=== PATIENT | female | born 1985 | race African-American/Black ===

== ENCOUNTER 2022-09-18 12:27 | Emergency (ER) | payer OTHER, SELFPAY ==
--- NOTE | ~2022-09-18 | US_ITS ---
EXAMINATION: US VENOUS ULTRASOUND WITH DOPPLER LOWER EXTREMITY, BILATERAL CLINICAL INFORMATION: Pain swelling COMPARISON: None available. TECHNIQUE: Ultrasound of the deep veins is performed from the hip to the calf with compression sonography and color and pulse Doppler assessment. Spectral analysis with color-flow imaging is performed. FINDINGS: RIGHT: There is normal venous compression and respiratory variation and augmented flow. The visualized common femoral vein, superficial femoral vein, profunda femoral vein, popliteal vein, and the trifurcation region shows no evidence of deep venous thrombosis. There is no significant popliteal fossa cyst. LEFT: There is normal venous compression and respiratory variation and augmented flow. The visualized common femoral vein, superficial femoral vein, profunda femoral vein, popliteal vein, and the trifurcation region shows no evidence of deep venous thrombosis. There is no significant popliteal fossa cyst. If the patient's symptoms persist, followup ultrasound in 5 days 7 days might be of value to exclude proximal propagation from a non-visualized calf vein. US/US venous duplex LE BI IMPRESSION: Limited from patient body habitus. The peroneal calf veins are not visualized bilaterally. There is however No DVT demonstrated in the bilateral lower extremity.
[2022-09-18 13:26] VITALS: BP 184/109; PULSE 78; RESP 20; TEMP 36.2; O2SAT 97; BMI 64.6
[2022-09-18 14:01] LABS: MANUAL DIFF FLAG NO
[2022-09-18 14:03] LABS: Basophils Percent Auto 0.4 % (0-2); Eosinophils Absolute Auto 0.2 X10*3/uL (0.0-0.4); Eosinophils Percent Auto 1.6 % (0-4); Hematocrit 38.2 % (37.0-47.0); Imm Gran Abs Auto 0.04 X10*3/uL (0.00-0.03); Imm Gran Pct Auto 0.4 % (0.0-0.4); Lymphocytes Absolute Auto 2.5 X10*3/uL (1.2-4.9); Lymphocytes Percent Auto 26.2 % (20-40); Mean Corpuscular HGB Conc 31.4 g/dl (31.0-35.0); Mean Corpuscular Hemoglobin 25.5 pg (27.0-33.0); Mean Corpuscular Volume 81.1 fL (80.0-98.0); Mean Platelet Volume 9.7 fL (9.4-12.3); Monocytes Absolute Auto 0.5 X10*3/uL (0.1-1.2); Monocytes Percent Auto 5.6 % (2-11); Neutrophils Absolute Auto 6.2 x10*3/uL (2.0-8.3); Neutrophils Percent Auto 65.8 % (45-73); Platelet Count 203 X10*3/uL (160-400); Red Blood Count 4.71 X10*6/uL (4.20-5.50); Red Cell Distribution Width 14.2 % (11.0-16.0); White Blood Count 9.4 X10*3/uL (4.8-10.8)
[2022-09-18 14:20] LABS: Alanine Aminotransferase 22 U/L (0-31); Albumin Level 4.2 g/dL (3.5-5.0); Alkaline Phosphatase 66 U/L (39-117); Anion Gap 14 (12-20); Aspartate Amino Transferase 26 U/L (5-31); Bilirubin Direct 0.1 mg/dL (0.0-0.5); Bilirubin Total 0.4 mg/dL (0.0-1.0); Blood Urea Nitrogen 12 mg/dL (9-16); Calcium 10.2 mg/dL (8.4-10.2); Carbon Dioxide 26 mmol/L (22-29); Chloride 103 mmol/L (96-108); Creatinine Clr Calc Pharmacy 182.5; Estimated Glomerular Filt Rate > 60; Glucose Random 148 mg/dL (60-115); Lipase 19 U/L (8-78); Potassium 4.2 mmol/L (3.3-5.1); Sodium 139 mmol/L (135-145); Total Protein 7.6 g/dL (6.5-8.0)
[2022-09-18 14:28] LABS: B Type Natriuretic Peptide < 10 pg/mL (<100)
[2022-09-18 14:45] VITALS: BP 149/82; PULSE 71; RESP 18; TEMP 36.6; O2SAT 98
[2022-09-18 16:41] VITALS: BP 160/94; PULSE 76; RESP 18; TEMP 36.8; O2SAT 98
--- NOTE | 2022-09-18 16:44 | ED.GENADULT ---
HPI - General Adult General Chief complaint: Extremity Problem Stated complaint: B/L Foot Swelling W/? Rash Time Seen by Provider: 09/18/22 16:05 Source: patient, RN notes reviewed and old records reviewed Mode of arrival: ambulatory Limitations: no limitations History of Present Illness HPI narrative: 37-year-old female with past medical history significant for obesity, depression presents for evaluation of bilateral leg swelling. Patient reports for the last week she has noticed increased swelling in both of her legs. Her leg seems swell more after sitting for long periods with her legs tangled in a dependent position She reports a 70 lb weight gain in the last 12 months or so She reports recently relocating to this area from [facility] and is currently living in a skilled nursing She reports that she is not on any medications currently She stopped taking her antidepressants about 6 months ago Denies any recent travel. The patient has a 2-1/2-year-old daughter who she has been caring for at home Denies any redness, swelling, fevers, chills Denies any history of DVTs or PEs Related Data Allergies Allergy/AdvReac Type Severity Reaction Status Date / Time cefuroxime Allergy Anaphylaxis Verified 09/18/22 13:37 Review of Systems Constitutional: Constitutional: Denies fatigue, Denies headache(s), Denies weakness and Reports weight gain ENT: Denies headache(s) Cardiovascular: Cardiovascular: Denies chest pain, Reports pedal edema, Reports leg edema and Denies dyspnea Respiratory: Respiratory: Denies cough and Denies dyspnea Gastrointestinal: Gastrointestinal: Denies abdominal pain, Denies constipation and Denies vomiting Genitourinary: Genitourinary: Denies dysuria Neurologic: Denies headache(s) and Denies weakness Endocrine: Endocrine: Denies fatigue PMFSH Social History Social History Advance Directives: No Advance Directives Information Provided: No Physical Exam ED Vital Signs: Vital Signs - 24 hr 09/18/22 13:26 09/18/22 14:45 09/18/22 16:41 Temperature 97.1 F 98 F 98.3 F Pulse Rate 78 71 76 Respiratory Rate 20 18 18 Blood Pressure 184/109 H 149/82 H 160/94 H Pulse Oximetry 97 98 98 Oxygen Delivery Method Room Air Room Air Room Air BMI result Body Mass Index 64.6 Const General: healthy appearing, comfortable, no acute distress, alert and awake Nutritional Appearance: well nourished Orientation/consciousness: patient oriented x3 [facility] Head: Yes normocephalic and Yes atraumatic Eyes Eyelids: Yes eyelids normal Conjunctivae: conjunctivae normal Sclerae: sclerae normal Corneas: corneas normal Pupils: Equal, round and reactive pupils present EOM: EOMs intact bilaterally Neck Neck: Yes full ROM Resp Effort & Inspection: normal respiratory effort, able to speak in complete sentences and not labored Cardio Other: No significant pitting edema to the lower extremities bilaterally. Rate: regular rate Rhythm: regular rhythm Skin Other: No erythema, rashes, lesions to lower extremities bilaterally General skin exam: no rashes or lesions noted and elasticity normal Neuro General: patient oriented x3 Cranial nerves: Yes Equal, round and reactive pupils present and Yes Bilaterally intact EOM present Cognition (Neuro): normal cognition Extrem Other: Moving all extremities well without any obvious deformities Medications Administered Discontinued Medications Generic Name Dose Route Start Last Admin Trade Name Freq PRN Reason Stop Dose Admin Acetaminophen 975 mg 09/18/22 17:40 09/18/22 17:47 Acetaminophen 325 Mg Tablet PO 09/18/22 17:41 975 mg ONCE ONE Administration Medical Decision Making Medical Decision Making [facility] Narrative: 37-year-old female presents for evaluation of leg swelling. Denies any chest pain or shortness of breath. She has no evidence of heart failure, BNP is less than 10. The patient's leg swelling is most likely related to dependent edema. She reports that her swelling has improved since sitting her legs up/elevated in the emergency department. Will get ultrasounds to rule out DVT as the patient admits to a sedentary lifestyle. The patient was educated on elevating her legs, decreasing fluid and sodium intake. Differential Diagnosis Leg edema Dependent edema DVT CHF Cellulitis Lab Data [facility] Lab Attestation statement: I reviewed the patient's lab results. No significant lab abnormalities, negative BNP, no leukocytosis, normal renal function 09/18/22 13:58 09/18/22 13:58 Labs: Lab Results 09/18/22 09/18/22 09/18/22 Range/Units 13:58 13:58 13:58 WBC 9.4 (4.8-10.8) X10*3/uL RBC 4.71 (4.20-5.50) X10*6/uL Hgb 12.0 (12.0-16.0) g/dl Hct 38.2 (37.0-47.0) % MCV 81.1 (80.0-98.0) fL MCH 25.5 L (27.0-33.0) pg MCHC 31.4 (31.0-35.0) g/dl RDW 14.2 (11.0-16.0) % Plt Count 203 (160-400) X10*3/uL MPV 9.7 (9.4-12.3) fL Immature Gran % (Auto) 0.4 (0.0-0.4) % Neut % (Auto) 65.8 (45-73) % Lymph % (Auto) 26.2 (20-40) % [place] % (Auto) 5.6 (2-11) % Eos % (Auto) 1.6 (0-4) % Baso % (Auto) 0.4 (0-2) % Lymph # (Auto) 2.5 (1.2-4.9) X10*3/uL [place] # (Auto) 0.5 (0.1-1.2) X10*3/uL Eos # (Auto) 0.2 (0.0-0.4) X10*3/uL Baso # (Auto) 0.0 (0.0-0.2) X10*3/uL Abs Immat Gran (auto) 0.04 H (0.00-0.03) X10*3/uL Absolute Neuts (auto) 6.2 (2.0-8.3) x10*3/uL Absolute Nucleated RBC 0.000 (0.0-0.012) X10*3/uL Nucleated RBC % (auto) 0.0 (0.0-0.2) /100WBC Sodium 139 (135-145) mmol/L Potassium 4.2 (3.3-5.1) mmol/L Chloride 103 (96-108) mmol/L Carbon Dioxide 26 (22-29) mmol/L Anion Gap 14 (12-20) BUN 12 (9-16) mg/dL Creatinine 0.73 (0.5-1.4) mg/dL Estim Creat Clear Calc 182.5 Estimated GFR > 60 Random Glucose 148 H (60-115) mg/dL Calcium 10.2 (8.4-10.2) mg/dL Total Bilirubin 0.4 (0.0-1.0) mg/dL Direct Bilirubin 0.1 (0.0-0.5) mg/dL AST 26 (5-31) U/L ALT 22 (0-31) U/L Alkaline Phosphatase 66 (39-117) U/L B-Natriuretic Peptide < 10 (<100) pg/mL Total Protein 7.6 (6.5-8.0) g/dL Albumin 4.2 (3.5-5.0) g/dL Lipase 19 (8-78) U/L Radiology Impression Discussion of test interpretation with radiology: I have reviewed the radiologist's reading. (No visualized DVT) Discharge Plan Discharge Clinical Impression: Leg edema Patient Disposition: Home, Self-Care Instructions: Leg Edema (ED) Additional Instructions: Your workup in the emergency department today was reassuring. Avoid excessive Maryse and fluid consumption. Elevate your legs above your heart while resting Follow-up with your primary care provider
--- NOTE | 2022-09-18 16:57 | PC.NURSE ---
US AT THE BEDSIDE FOR BILATERAL LE EXAM
[2022-09-18] MEDS: Acetaminophen 325 MG TABLET 975 MG PO (17:47)
== END 2022-09-18 18:42 | disposition home or self-care (01) ==
PROVIDERS: Nurse Practitioner Family; Emergency Provider Internal Medicine
DX: R60.0 Localized edema (principal); R06.02 Shortness of breath; Z79.899 Other long term (current) drug therapy
CPT/HCPCS: 36415; 80048; 80076; 83690; 83880; 85025; 93970; 99284

== ENCOUNTER 2022-11-04 10:11 | Outpatient (REF) | payer OTHER, SELFPAY ==
--- NOTE | ~2022-11-04 | XR_ITS ---
EXAMINATION: XR SHOULDER, RIGHT CLINICAL INFORMATION: Pain in right shoulder COMPARISON: None available. TECHNIQUE: AP external rotation, Grashey, scapular Y, and axillary views of the right shoulder. FINDINGS: The bones and soft tissues are normal. No fracture. Glenohumeral and acromioclavicular alignment is anatomic with normal joint space. No abnormal soft tissue calcifications. XR/XR shoulder RT min 2V IMPRESSION: Normal right shoulder.
--- NOTE | ~2022-11-04 | XR_ITS ---
EXAMINATION: XR knee standing BI, XR knee LT 2V CLINICAL INFORMATION: Female of 37 years with history of Pain in left knee COMPARISON: Most recent left knee radiograph: Date TECHNIQUE: Four views of the left knee. FINDINGS: LEFT KNEE: Bones and soft tissues are normal. No fracture . Alignment is anatomic. No abnormal soft tissue calcification. There is mild narrowing of lateral compartment of patellofemoral joint and minimal marginal spurring of the lateral tibial and femoral condyles bilaterally. There is small joint effusion seen. XR/XR knee LT 2V IMPRESSION: Mild degenerative changes of left knee joint with small joint effusion.
--- NOTE | ~2022-11-04 | XR_ITS ---
EXAMINATION: XR knee standing BI, XR knee LT 2V CLINICAL INFORMATION: Female of 37 years with history of Pain in left knee COMPARISON: Most recent left knee radiograph: Date TECHNIQUE: Four views of the left knee. FINDINGS: LEFT KNEE: Bones and soft tissues are normal. No fracture . Alignment is anatomic. No abnormal soft tissue calcification. There is mild narrowing of lateral compartment of patellofemoral joint and minimal marginal spurring of the lateral tibial and femoral condyles bilaterally. There is small joint effusion seen. XR/XR knee standing BI IMPRESSION: Mild degenerative changes of left knee joint with small joint effusion.
== END 2022-11-04 10:12 | disposition home or self-care (01) ==
LOC: HO.HOSX 10:11
PROVIDERS: Visit Provider Orthopaedic Surgery
DX: M25.562 Pain in left knee (principal); M25.511 Pain in right shoulder
CPT/HCPCS: 73030; 73560; 73565

== ENCOUNTER 2022-11-14 10:41 | Outpatient (AMB) | payer OTHER, SELFPAY ==
--- NOTE | 2022-11-14 11:01 | A.OFFVIS_ITS ---
Intake Vital Signs 11/14/22 11:03 Height 5 ft 7 in Weight 412 lb BMI 64.5 Intake Visit Reasons: New Pt - Left Knee, Right Shoulder 2nd Opinion Intake Note: Nany is a 37 year old female who presnets today as a new patient with complaints of left knee and right shoulder pain. She was previously seen and treated at [facility]. She has tried cortisone injections and gel injections with mild releif of the left knee in the past, Previous MRI showed MMT and PF OA. Allergies cefuroxime Allergy (Verified 09/18/22 13:37) Anaphylaxis HPI New Pt - Left Knee, Right Shoulder 2nd Opinion HPI Details Nany is a 37 year old woman who presents for a 2nd opinion of her left knee & right shoulder pain. She says her knee pain began several months ago after a fall at work. This is a workers comp injury. She complains of pain with weight-bearing and twisting motions of her knee, especially using stairs. She says her pain is worse at night. She finds some relief from aquatic therapy but continues to have a painful clicking sensation in her knee. Most of her pain is localized to the medial aspect of her knee. She says she had mild relief of her knee pain from both steroid & gel injections at an outside clinic. She takes Ibuprofen with some relief. She says a previous MRI of her knee showed a MMT and PF OA. She says her right shoulder has some pain, but this is tolerable compared to her knee pain. She has a young daughter with Cerebral palsy that she cares for. [facility] Social History Patient Tobacco Use Status: Never used Tobacco Current occupational status: employed Current occupation: Recovery Specialst/Supervisor [employer] Review of Systems Const All systems reviewed & are unremarkable except as noted in HPI and below Physical Exam Vital Signs: BMI result Body Mass Index 64.5 Const General: no acute distress, alert and awake Orientation/consciousness: patient oriented x3 HEENT Head: Yes normocephalic and Yes atraumatic Eyes EOM: EOMs intact bilaterally Resp Effort & Inspection: normal respiratory effort and able to speak in complete sentences Cardio Jugular venous distension: no JVD Skin General skin exam: turgor normal Rashes: no rashes Neuro General: patient oriented x3 Extrem Other: Left Knee: Sharp medial steinmans TTP medial compartment Psych Appearance: grossly normal Affect: normal affect Attitude: cooperative Results Reviewed Results Reviewed: I personally reviewed relevant radiographs. Mild degenerative changes of left knee joint with small joint effusion. MRI report reviewed and describes large MMT with PF chondromalacia MRE report describes alrger radial medial meniscus tear Assessment & Plan Assessment & Plan (1) Tear of medial meniscus of left knee: Code(s): S83.242A - Other tear of medial meniscus, current injury, left knee, initial encounter Plan: This is a 37 year old woman with a large radial tear of the medial meniscus. This began after a fall several months ago at work. This is a work-related injury and she is currently out of work. She complains of pain with daily & weight-bearing activities, worse with using stairs or twisting motions. She found limited relief from steroid injections & viscosupplementation at an outside clinic. She feels limited in her ADLs and is frustrated by this. I dis cussed her diagnosis and treatment options. I recommend a left knee for meniscectomy. I discussed the risks, benefits, and alternatives including, but not limited to, the risk of pain, infection, stiffness, need for further surgery as well as potential medical complications such as blood clots. I discussed the recovery timeline and process as well as the importance of PT. Nany is a good candidate for this surgery, and she wishes to proceed with this decision. She will schedule this procedure. She will work on obtaining a copy of her MRI a. She was given a note to remain out of work, on her current work restrictions. (2) Osteoarthritis of left knee: Code(s): M17.12 - Unilateral primary osteoarthritis, left knee (3) Morbid obesity with BMI of 60.0-69.9, adult: Code(s): E66.01 - Morbid (severe) obesity due to excess calories; Z68.44 - Body mass index [BMI] 60.0-69.9, adult Plan: Her current BMI is 64.5 and weight is 412lbs. Plan Scribed for Yao Burgos MD by Wood Curry, medical technician assistant, on 11/14/22 at 11:15 AM, EST. Coding Level of Care Code New Pt Level 4 (19021) Diagnoses Tear of medial meniscus of left knee S83.242A Osteoarthritis of left knee M17.12 Morbid obesity with BMI of 60.0-69.9, adult E66.01; Z68.44
[2022-11-14 11:03] VITALS: BMI 64.5
== END 2022-11-14 11:28 | disposition home or self-care (01) ==
PROVIDERS: Visit Provider Orthopaedic Surgery
DX: S83.242A Other tear of medial meniscus, current injury, left knee, initial encounter (principal); M17.12 Unilateral primary osteoarthritis, left knee
CPT/HCPCS: 99204

== ENCOUNTER → 2022-11-14 10:41 | Outpatient (BNVA) | payer OTHER, SELFPAY | PROVIDERS: Visit Provider Orthopaedic Surgery | DX: S83.242A Other tear of medial meniscus, current injury, left knee, initial encounter (principal); M17.12 Unilateral primary osteoarthritis, left knee; E66.01 Morbid (severe) obesity due to excess calories; Z68.44 Body mass index [BMI] 60.0-69.9, adult | CPT/HCPCS: 99202 ==

== ENCOUNTER 2023-02-22 05:59 | Day surgery (SDC) | payer OTHER, SELFPAY ==
[2023-02-20 07:19] VITALS: BMI 64.5
--- NOTE | 2023-02-21 08:25 | HO.ANESPROP2 ---
Documented by User: Shirin Ricks NP 02/21/23 08:27 HPI - Anesthesia Eval Consult details Narrative: 37yo F for Left Knee Arthroscopy ? Suboxone daily PMFSH Active Problems Active Problems: All Active Problems (Updated 11/14/22 @ 11:18 by Wood Curry) Osteoarthritis of left knee (Acute) Tear of medial meniscus of left knee (Acute) Morbid obesity with BMI of 60.0-69.9, adult (Acute) Past Medical History Medical History (Updated 02/22/23 @ 06:31 by Alissa Yang RN) Obesity (BMI 35.0-39.9 without comorbidity) Surgical History Surgical History (Updated 02/22/23 @ 06:31 by Alissa Yang RN) Hx of cholecystectomy Hx of umbilical hernia repair Social History Social History Patient Tobacco Use Status: Former Tobacco user Quit Date: 6 yrs ago Use of substances other than those prescribed or required for medical reasons: Yes Substance Use Frequency: Occasionally Are you DNR?: No Advance Directives: No Advance Directives Information Provided: Yes Current occupational status: employed Current occupation: Recovery Specialst/Business Programmer Meds Allergies Allergy/AdvReac Type Severity Reaction Status Date / Time cefuroxime Allergy Anaphylaxis Verified 09/18/22 13:37 Exam Height,Weight and Vital Signs: Height 5 ft 7 in Weight 186.88 kg Pertinent Lab Results Pertinent Lab Results: Laboratory Tests 09/18/22 13:58 WBC 9.4 Hgb 12.0 Hct 38.2 Plt Count 203 Sodium 139 Potassium 4.2 Chloride 103 Carbon Dioxide 26 BUN 12 Creatinine 0.73 Assessment and Plan Assessment Anesthesia Assessment: Chart Reviewed Documented by User: Rah Concepcion MD 02/22/23 08:03 PMFSH Past Medical History Medical History (Updated 02/22/23 @ 06:31 by Alissa Yang RN) Obesity (BMI 35.0-39.9 without comorbidity) Family History Family history of problems with anesthesia: No Surgical History Surgical History (Updated 02/22/23 @ 06:31 by Alissa Yang RN) Hx of cholecystectomy Hx of umbilical hernia repair History of Problems with Anesthesia: No Social History Social History Patient Tobacco Use Status: Former Tobacco user Quit Date: 6 yrs ago Use of substances other than those prescribed or required for medical reasons: Yes Substance Use Frequency: Occasionally Are you DNR?: No Advance Directives: No Advance Directives Information Provided: Yes Current occupational status: employed Current occupation: Recovery Specialst/Business Programmer Meds Allergies Allergy/AdvReac Type Severity Reaction Status Date / Time cefuroxime Allergy Anaphylaxis Verified 09/18/22 13:37 Exam Airway Mallampati Class: I TM Dist: >3cm Neck ROM: Limited Heart: rrr Lungs: cta Assessment and Plan Assessment Anesthesia Assessment: Anesthesia Plan Discussed Final Anesthetic Review Family History of Problems with Anesthesia: No History of Problems with Anesthesia: No NPO: Yes ASA Class: III Final Preanesthetic Review: No Changes in Pt Med Stat, Meds/Allgs Chart Reviewed, Consent Obtained/Reviewed and Anes Risks/Benef Reviewed Patient Risk: Intermediate Procedure Risk: Intermediate Anesthetic Plan Anesthetic Plan: GA and Agree w/ Assess. and Plan Disposition: Standard PACU
[2023-02-22] VITALS (13 sets, daily range): BP systolic 131–168; BP diastolic 79–99; PULSE 76–99; RESP 16–18; TEMP 36.2–36.8; O2SAT 95–99; BMI 61.5
[2023-02-22 06:38] LABS: UPreg QC Valid YES; Urine Pregnancy NEGATIVE (NEGATIVE)
--- NOTE | 2023-02-22 07:39 | PC.NURSE ---
difficult iv stick. md don inserted iv via ultrasound.
[2023-02-22] MEDS: Lactated Ringers 1,000 ML 100 ML IVCONT (07:41)
--- NOTE | 2023-02-22 08:42 | PM.OP ---
Brief Operative Note Date of Service: 02/22/23 Pre-op diagnosis: Left knee MMT Post-op diagnosis: same Procedure: Partial medial meniscus tear, left knee Implants: none Surgeon: Yao Burgos MD Anesthesia: GETA and local Was an Edge Trimmer Mechanic used for this Procedure?: No Estimated blood loss (mL): 10 IV fluids (mL): 750 Pathology: none sent Condition: stable Disposition: PACU
[2023-02-22] MEDS: fentaNYL citrate/PF 100 MCG/2 ML VIAL 25 MCG IVPUSH ×3 (09:00→09:41)
[2023-02-22] MEDS: Acetaminophen 325 MG TABLET 650 MG PO (09:12)
[2023-02-22] MEDS: oxyCODONE HCl Immed Release 5 MG TABLET PO (09:12)
--- NOTE | 2023-02-24 15:25 | P.OP_ITS ---
Operative Note Operative Note Date of Service: 02/22/23 Narrative: Date of Service: 02/22/23 Pre-op diagnosis: Left knee MMT Post-op diagnosis: same Procedure: Partial medial meniscus tear, left knee Implants: none Surgeon: Yao Burgos MD Anesthesia: GETA and local Was an Economic Development Coordinator used for this Procedure?: No Estimated blood loss (mL): 10 IV fluids (mL): 750 Pathology: none sent Condition: stable Disposition: PACU Procedure in detail: Patient was brought to the operating room placed supine on the arthroscopic table and prepped and draped in standard sterile fashion. A time-out was called to identify proper site proper procedure proper surgeon and IV antibiotics per weight were administered. I began by exsanguinating the limb and insufflating tourniquet to 300 mm Hg. Then made a standard anterolateral stab incision. The knee was insufflated with water and 30 degree arthroscope was placed. There was grade 2 fibrillations of the patella. The suprapatellar pouch was plane and the gutters were clean. I descended into the medial compartment where I made my medial portal under direct visualization. There was obvious of complex tear of the body and posterior horn of the medial meniscus. Thge root was intact but the posterior horn was unstable and there was grade 1 changes with some scattered grade 2 changes throughout the medial compartment. I used a combination of biter shaver and cautery to remove unstable portions of the meniscus. Approximately 50% meniscal volume was removed. Once I was satisfied with this the ACL was examined and found to be intact and the lateral compartment also was without the need for intervention. I then removed all ins trumentation and closed the portals with skin glue. 25 mL of 2% Marcaine with epinephrine was injected into the joint and the surrounding soft tissues. Patient was then placed in sterile dressing extubated brought recovery room stable condition. There were no known complications.
== END 2023-02-22 10:36 | disposition home or self-care (01) ==
PROVIDERS: Nurse Practitioner; Visit Provider Orthopaedic Surgery
PROC: (CPT 29870; principal; 2023-02-22 07:30)
DX: S83.232A Complex tear of medial meniscus, current injury, left knee, initial encounter (principal); M17.12 Unilateral primary osteoarthritis, left knee; W19.XXXA Unspecified fall, initial encounter; Y93.9 Activity, unspecified; Y92.69 Other specified industrial and construction area as the place of occurrence of the external cause; Y99.8 Other external cause status; E66.01 Morbid (severe) obesity due to excess calories; Z68.44 Body mass index [BMI] 60.0-69.9, adult; Z88.8 Allergy status to other drugs, medicaments and biological substances
CPT/HCPCS: 29881; 81025; J0171; J0736; J1100; J1170; J2405; J2704; J2795; J3010

== ENCOUNTER → 2023-02-22 05:59 | Outpatient (BNV) | payer OTHER, SELFPAY | PROVIDERS: Visit Provider Orthopaedic Surgery | DX: S83.232A Complex tear of medial meniscus, current injury, left knee, initial encounter (principal) | CPT/HCPCS: 29881 ==

== ENCOUNTER 2023-02-28 13:29 | Outpatient (AMB) | payer OTHER, SELFPAY ==
--- NOTE | 2023-02-28 13:35 | A.OFFVIS_ITS ---
Intake Intake Visit Reasons: PO-Lt Knee 01/04/23 NE Intake Note: Nany is a 37 year old female who presents today for a post op appointment s/p left knee 01/04/23 NE. Patient reports she is doing a little better but still having some discomfort. Allergies cefuroxime Allergy (Verified 02/28/23 13:44) Anaphylaxis HPI PO-Lt Knee 01/04/23 NE HPI0 Details 37-year-old female who presents in the [facility] today 6 days status post left knee partial medial meniscus tear, which was performed on 02/22/[address] Burgos. The patient reports she is doing a little better but still having some discomfort. [facility] Medical History (Updated 02/28/23 @ 13:49 by Juanis Emanuel) Obesity (BMI 35.0-39.9 without comorbidity) Surgical History (Updated 02/22/23 @ 06:31 by Alissa Yang RN) Hx of cholecystectomy Hx of umbilical hernia repair Social History Patient Tobacco Use Status: Former Tobacco user Quit Date: 6 yrs ago Current occupational status: employed Current occupation: Recovery Specialst/Desktop Support Technician Review of Systems Const All systems reviewed & are unremarkable except as noted in HPI and below Physical Exam Const General: cooperative, healthy appearing and no acute distress Resp Effort & Inspection: normal respiratory effort and able to speak in complete sentences Cardio Rate: regular rate Peripheral pulses: Peripheral pulses 2+ throughout GI Palpation (GI): Soft to palpation Skin Lesions: no lesions Rashes: no rashes Extrem Other: Left knee: Normal to inspection. No ecchymosis, erythema, or joint effusion. Incision site is clean, dry, and intact. No drainage. No signs of infection. ROM is 0-110 degrees. Assessment & Plan Assessment & Plan (1) Tear of medial meniscus of left knee: Code(s): S83.242A - Other tear of medial meniscus, current injury, left knee, initial encounter Qualifiers: Encounter type: subsequent encounter Meniscus tear of knee type: unspecified type Tear current or old: unspecified Qualified Code(s): S83.242D - Other tear of medial meniscus, current injury, left knee, subsequent encounter (2) Osteoarthritis of left knee: Code(s): M17.12 - Unilateral primary osteoarthritis, left knee Qualifiers: Osteoarthritis type: unspecified Qualified Code(s): M17.12 - Unilateral primary osteoarthritis, left knee (3) Morbid obesity with BMI of 60.0-69.9, adult: Code(s): E66.01 - Morbid (severe) obesity due to excess calories; Z68.44 - Body mass index [BMI] 60.0-69.9, adult Plan Ms. Vasquez is a 37-year-old female who presents in the office today 6 days status post left knee partial medial meniscus tear, which was performed on 02/22/[address] Burgos. The patient reports she is doing a little better but still having some discomfort. The patient will attend physical therapy in [place] where she is currently living. She was provided with a paper copy of the order while in the office today. She will remain out of work until follow up. Follow up will be in 4 weeks via telehealth, or sooner if needed. Patient Instructions: Scribed for Mell Steve PA-C by Juanis Emanuel bacteriologist medical, on 02/28/2023 at 1:33 pm, EST. Coding Level of Care Code Global (88066) Diagnoses Tear of medial meniscus of left knee, unspecified tear type, unspecified whether old or current tear, subsequent encounter S83.242D Encounter type: subsequent encounter Meniscus tear of knee type: unspecified type Tear current or old: unspecified Osteoarthritis of left knee, unspecified osteoarthritis type M17.12 Osteoarthritis type: unspecified Morbid obesity with BMI of 60.0-69.9, adult E66.01; Z68.44
== END 2023-02-28 13:59 | disposition home or self-care (01) ==
PROVIDERS: Visit Provider Physician Assistant
DX: S83.242D Other tear of medial meniscus, current injury, left knee, subsequent encounter (principal); M17.12 Unilateral primary osteoarthritis, left knee; E66.01 Morbid (severe) obesity due to excess calories; Z68.44 Body mass index [BMI] 60.0-69.9, adult
CPT/HCPCS: 99024

== ENCOUNTER → 2023-02-28 13:29 | Outpatient (BNVA) | payer OTHER, SELFPAY | PROVIDERS: Visit Provider Physician Assistant | DX: S83.242D Other tear of medial meniscus, current injury, left knee, subsequent encounter (principal); M17.12 Unilateral primary osteoarthritis, left knee; E66.01 Morbid (severe) obesity due to excess calories; Z68.44 Body mass index [BMI] 60.0-69.9, adult | CPT/HCPCS: 99212 ==

== ENCOUNTER 2023-04-04 13:24 | Outpatient (AMB) | payer OTHER, SELFPAY ==
--- NOTE | 2023-04-04 13:33 | MHC.OFFVIS ---
Intake Intake Visit Reasons: tele- PO-Lt Knee 01/04/23 [place] Allergies cefuroxime Allergy (Verified 02/28/23 13:44) Anaphylaxis HPI tele- PO-Lt Knee 01/04/23 [place] HPI Details 37-year-old female who presents for a telehealth visit today 5 weeks and 6 days status post left knee partial medial meniscus tear, which was performed on 02/22/[address] Burgos. I last saw the patient in the office on 02/28/2023 where she was referred to physical therapy in [place] where she is currently living. She was also to remain out of work until follow up. She states she is feeling a little better. She confirms she just recently started physical therapy and just started working on the strengthening. Which she feels she is still lacking in her left lower extremity. She would like an out of work for another month to allow for time for her to work on the strengthening of the left knee. [facility] Medical History (Updated 02/28/23 @ 13:49 by Juanis Emanuel) Obesity (BMI 35.0-39.9 without comorbidity) Surgical History (Updated 02/22/23 @ 06:31 by Alissa Yang RN) Hx of cholecystectomy Hx of umbilical hernia repair Social History Patient Tobacco Use Status: Former Tobacco user Quit Date: 6 yrs ago Current occupational status: employed Current occupation: [employer] Reset Review of Systems Const All systems reviewed & are unremarkable except as noted in HPI and below Physical Exam Extrem Other: Deferred due to being a telehealth appointment. Assessment & Plan Assessment & Plan (1) Tear of medial meniscus of left knee: Code(s): S83.242A - Other tear of medial meniscus, current injury, left knee, initial encounter Qualifiers: Encounter type: subsequent encounter Meniscus tear of knee type: unspecified type Tear current or old: unspecified Qualified Code(s): S83.242D - Other tear of medial meniscus, current injury, left knee, subsequent encounter (2) Osteoarthritis of left knee: Code(s): M17.12 - Unilateral primary osteoarthritis, left knee Qualifiers: Osteoarthritis type: unspecified Qualified Code(s): M17.12 - Unilateral primary osteoarthritis, left knee (3) Morbid obesity with BMI of 60.0-69.9, adult: Code(s): E66.01 - Morbid (severe) obesity due to excess calories; Z68.44 - Body mass index [BMI] 60.0-69.9, adult Plan Ms. Vasquez is a 37-year-old female who presents for a telehealth visit today 5 weeks and 6 days status post left knee partial medial meniscus tear, which was performed on 02/22/[address] Burgos. I last saw the patient in the office on 02/28/2023 where she was referred to physical therapy in [place] where she is currently living. She was also to remain out of work until follow up. She states she is feeling a little better. She confirms she just recently started physical therapy and just started working on the strengthening. Which she feels she is still lacking in her left lower extremity. She would like an out of work for another month to allow for time for her to work on the strengthening of the left knee. She will be mailed and faxed a note (Lorrie Acevedo, the patient?s extrusion technician) stating she will remain out of work until her follow up in 4 weeks. She will continue to work with physical therapy on strengthening of the left knee. Follow up will be in 4 weeks in the office, or sooner if needed. Patient Instructions: Scribed for Mell Steve PA-C by Juanis Emanuel director global medical affairs, on 04/04/2023 at 1:27 pm, EST. Telehealth Telehealth Location of provider rendering services: practice address Location of patient: address on file Patient Identification confirmed using: Name, : Yes Telehealth method: voice only Patient verbally consented to treatment: Yes Patient verbally consented to billing insurance company: Yes Patient informed of any privacy concerns related to visit: Yes Minutes spent on Phone/Video with Pt.: 10 Coding Level of Care Code Tele Est Pt Level 3 (05413) Diagnoses Tear of medial meniscus of left knee, unspecified tear type, unspecified whether old or current tear, subsequent encounter S83.242D Encounter type: subsequent encounter Meniscus tear of knee type: unspecified type Tear current or old: unspecified Osteoarthritis of left knee, unspecified osteoarthritis type M17.12 Osteoarthritis type: unspecified Morbid obesity with BMI of 60.0-69.9, adult E66.01; Z68.44
== END 2023-04-04 13:52 | disposition home or self-care (01) ==
LOC: HO.HOS 13:25
PROVIDERS: Visit Provider Physician Assistant
DX: S83.242D Other tear of medial meniscus, current injury, left knee, subsequent encounter (principal); M17.12 Unilateral primary osteoarthritis, left knee
CPT/HCPCS: 99024

== ENCOUNTER → 2023-04-04 13:24 | Outpatient (BNVA) | payer OTHER, SELFPAY | PROVIDERS: Visit Provider Physician Assistant | DX: S83.242D Other tear of medial meniscus, current injury, left knee, subsequent encounter (principal); M17.12 Unilateral primary osteoarthritis, left knee; E66.01 Morbid (severe) obesity due to excess calories; Z68.44 Body mass index [BMI] 60.0-69.9, adult | CPT/HCPCS: 99212 ==